=== PATIENT | male | born 1950 | race Two or more races ===

== ENCOUNTER 2022-07-27 18:56 | Inpatient (IN) | payer MEDICARE, OTHER ==
[~2022-07-27] VITALS: Ht 170.2 cm; Wt 60.0 kg
[2022-07-27] MEDS ORDERED: SODIUM CHLORIDE 0.9% 500 ML IV ONE (19:45)
[2022-07-27 20:00] LABS: Basophils # (auto) 0 10 ^3/uL (0-0.2); Basophils % (auto) 0.3 % (0.0-2.0); Eosinophils # (auto) 0.1 10 ^3/uL (0-0.8); Eosinophils % (auto) 1.5 % (0.0-7.0); Hematocrit 36.5 % (41.0-53.0); Hemoglobin 11.9 g/dL (13.5-17.5); Lymphocytes # (auto) 1.6 10 ^3/uL (0.4-5.4); Lymphocytes % (auto) 28.3 % (10.0-50.0); Mean Corpuscular Hemoglobin 28.8 pg (28.0-32.0); Mean Corpuscular Hgb Conc. 32.7 g/dL (32.0-36.0); Mean Corpuscular Volume 88.2 fL (80.0-100.0); Monocytes # (auto) 0.5 10 ^3/uL (0-1.3); Monocytes % (auto) 8.6 % (0.0-12.0); Neutrophils # (auto) 3.4 10 ^3/uL (1.6-8.6); Neutrophils % (auto) 61.3 % (37.0-80.0); Nucleated Red Blood Cells % 0.1 %; Red Blood Cells 4.14 10^6/uL (4.5-5.90); Red Cell Distribution Width 14.6 % (11.8-14.3); White Blood Cell 5.6 10^3/uL (4.4-10.8)
[2022-07-27 20:35] LABS: Albumin 3.3 g/dL (3.4-5.0); Calcium 8.8 mg/dL (8.5-10.1)
[2022-07-27 20:37] LABS: BUN/Creatinine Ratio 22.6 (10.0-20.0)
[2022-07-27 20:40] LABS: Bilirubin, Total 0.7 mg/dL (0.2-1.0); Total Protein 6.2 g/dL (6.4-8.2)
[2022-07-27] MEDS ORDERED: MORPHINE SULFATE INJ 2 MG/ml SYRG IV PRN (21:30)
[2022-07-27] MEDS ORDERED: ACETAMINOPHEN 325 MG TAB PO PRN (21:30)
[2022-07-27] MEDS ORDERED: NITROGLYCERIN 0.4 MG SL TAB SL PRN (21:30)
[2022-07-27] MEDS ORDERED: ONDANSETRON HCL 4 MG/2 ML VIAL IV PRN (21:30)
[2022-07-28] MEDS ORDERED: LORazepam 2MG/ML-1ML VIAL IV ONE (02:00)
[2022-07-28 03:30] LABS: Urine Bacteria NONE SEEN /hpf (None Seen); Urine Blood Negative /uL (Negative); Urine Mucus FEW (None Seen); Urine WBC 1 /hpf (0 - 3)
[2022-07-28 06:40] LABS: BUN/Creatinine Ratio 27.4 (10.0-20.0)
[2022-07-28 06:48] LABS: Basophils # (auto) 0 10 ^3/uL (0-0.2); Basophils % (auto) 0.3 % (0.0-2.0); Eosinophils # (auto) 0 10 ^3/uL (0-0.8); Eosinophils % (auto) 0.7 % (0.0-7.0); Hematocrit 35.2 % (41.0-53.0); Hemoglobin 11.7 g/dL (13.5-17.5); Lymphocytes # (auto) 1.8 10 ^3/uL (0.4-5.4); Mean Corpuscular Hemoglobin 29.3 pg (28.0-32.0); Mean Corpuscular Hgb Conc. 33.2 g/dL (32.0-36.0); Mean Corpuscular Volume 88.3 fL (80.0-100.0); Monocytes # (auto) 0.7 10 ^3/uL (0-1.3); Neutrophils # (auto) 4.3 10 ^3/uL (1.6-8.6); Red Blood Cells 3.99 10^6/uL (4.5-5.90); Red Cell Distribution Width 14.9 % (11.8-14.3); White Blood Cell 6.7 10^3/uL (4.4-10.8)
[2022-07-28] MEDS: ENOXAPARIN SOD 30 MG/0.3 ML SYRINGE SC SCH (11:00)
[2022-07-28] MEDS: PANTOPRAZOLE 40 MG TAB PO SCH (11:00)
[2022-07-28] MEDS ORDERED: DEXTROSE (50%) 50ML SYRG IV PRN (12:45)
[2022-07-28 13:05] VITALS: BP 136/67
[2022-07-28] MEDS ORDERED: DONE5TAB11 PO (14:07)
[2022-07-28] MEDS ORDERED: ASPI-498 OR (14:07)
[2022-07-28] MEDS: ACCU-CHEK COMFORT CURVE STRIP VI SCH (17:36)
[2022-07-28] MEDS: InsuLIN REG 1unit/0.01ml Soln (100units/ml) SC SCH (17:36)
[2022-07-28] MEDS ORDERED: TEMAZEPAM 15 MG CAP PO PRN (18:15)
[2022-07-28] MEDS ORDERED: ALPRAZolam 0.25 MG TAB PO PRN (18:15)
[2022-07-28] MEDS ORDERED: HALOPERIDOL LACTATE 5 MG/ML INJ VIAL IM PRN (20:45)
[2022-07-28 21:52] LABS: Folate (Folic Acid) 14.67 ng/mL (5.38-24)
[2022-07-28 22:00] VITALS: BP 103/61
[2022-07-28] MEDS ORDERED: ATORVASTATIN 20 MG TAB PO SCH (22:00)
[2022-07-28] MEDS ORDERED: DONEPEZIL HYDROCHLORIDE 5 MG TAB PO SCH (22:00)
[2022-07-28 22:30] LABS: Cholesterol 130 mg/dL (< 200); Triglycerides 54 mg/dL (< 150)
[2022-07-28 22:32] LABS: HDL Cholesterol 64 mg/dL (40-59); LDL Cholesterol 67 mg/dL (< 100)
[2022-07-29 05:00] VITALS: BP 109/53
[2022-07-29] MEDS: InsuLIN REG 1unit/0.01ml Soln (100units/ml) SC SCH ×3 (06:00→12:00)
[2022-07-29] MEDS: ACCU-CHEK COMFORT CURVE STRIP VI SCH ×3 (06:13→12:00)
[2022-07-29 08:00] VITALS: BP 106/59
[2022-07-29] MEDS: PANTOPRAZOLE 40 MG TAB PO SCH (09:12)
[2022-07-29] MEDS: ENOXAPARIN SOD 30 MG/0.3 ML SYRINGE SC SCH (09:13)
[2022-07-29] MEDS ORDERED: ASPirin 81 mg TAB PO SCH (10:00)
[2022-07-29] MEDS ORDERED: QUET25TA37 PO (11:23)
[2022-07-29 12:00] VITALS: BP 110/56
[2022-07-29 13:18] VITALS: BP 108/56
== END 2022-07-29 14:10 | disposition home or self-care (01) | DRG 315 ==
LOC: EDBD 18:56 → ER 19:03 → TELE 21:23 → TELE-WESTW 07-28 13:06
PROVIDERS: ADMIT Nurse Practitioner; ATTEND Internal Medicine Geriatric Medicine
PROC: 4A00X4Z Measurement of Central Nervous Electrical Activity, External Approach (ICD-10-PCS; principal; 2022-07-29)
DX: I95.9 Hypotension, unspecified (principal); E44.1 Mild protein-calorie malnutrition; N17.9 Acute kidney failure, unspecified; E86.0 Dehydration; R00.1 Bradycardia, unspecified; G30.9 Alzheimer's disease, unspecified; I10 Essential (primary) hypertension; E11.9 Type 2 diabetes mellitus without complications; K21.9 Gastro-esophageal reflux disease without esophagitis; F02.80 Dementia in other diseases classified elsewhere, unspecified severity, without behavioral disturbance, psychotic disturbance, mood disturbance, and anxiety; F17.200 Nicotine dependence, unspecified, uncomplicated; Z79.82 Long term (current) use of aspirin; Z79.899 Other long term (current) drug therapy; Z82.3 Family history of stroke; Z82.49 Family history of ischemic heart disease and other diseases of the circulatory system; Z83.3 Family history of diabetes mellitus; Z86.73 Personal history of transient ischemic attack (TIA), and cerebral infarction without residual deficits; Z68.20 Body mass index [BMI] 20.0-20.9, adult
CPT/HCPCS: 36415; 70450; 70551; 71045; 80048; 80053; 80061; 81001; 82607; 82746; 82962; 83605; 83735; 84443; 84484; 85025; 93005; 93306; 93886; 95819; 96372; 96374; 97163; G0378